=== PATIENT | female | born 1985 | race Hispanic/Latino ===

== ENCOUNTER 2021-02-11 05:53 | Inpatient (IN) | payer OTHER ==
[2021-02-11 06:28] VITALS: BMI 23.8
[2021-02-11] MEDS ORDERED: Misoprostol 200 MCG TAB PR PRN (06:35)
[2021-02-11] MEDS ORDERED: Lidocaine 1% (PF) 30 ML VIAL SC PRN ×2 (06:35→06:45)
[2021-02-11] MEDS ORDERED: Acetaminophen/Codeine 30-300mg Tablet PO PRN (06:35)
[2021-02-11] MEDS ORDERED: Ibuprofen 800 MG TAB PO PRN (06:35)
[2021-02-11] MEDS ORDERED: Lactated Ringer's 1,000 ML IV SCH (06:45)
[2021-02-11] MEDS ORDERED: Promethazine HCl 25 MG/ML VIAL IM PRN ×2 (06:45→09:34)
[2021-02-11] MEDS ORDERED: Diphenoxylate HCl/Atropine Tablet PO PRN ×2 (06:45)
[2021-02-11] MEDS ORDERED: Ondansetron PF 4 MG/2 ML Vial IVP PRN ×2 (06:45→09:34)
[2021-02-11] MEDS ORDERED: hydrALAZINE 20 MG/ML VIAL SLOW IVP PRN ×2 (06:45→11:24)
[2021-02-11] MEDS ORDERED: Acetaminophen 500 MG TAB PO PRN (06:45)
[2021-02-11] MEDS ORDERED: NS w/ Oxytocin 30 units 500 ML IV SCH ×3 (06:45)
[2021-02-11] MEDS ORDERED: Methylergonovine 0.2 MG/ML VIAL IM PRN (06:45)
[2021-02-11] MEDS ORDERED: NS w/ Oxytocin 30 units 500 ML IVPB SCH ×2 (06:45)
[2021-02-11] MEDS ORDERED: Butorphanol Tartrate 1 MG/ML VIAL SLOW IVP PRN (06:45)
[2021-02-11] MEDS ORDERED: Carboprost 250 MCG/ML AMP IM PRN (06:45)
[2021-02-11] MEDS ORDERED: Misoprostol 200 MCG TAB RC PRN (06:45)
[2021-02-11 07:15] LABS: Hemoglobin 12.8 g/dL (12.0-15.5); Mean Corpuscular HGB CONC 35.1 g/dL (32.0-36.0); Mean Corpuscular Hemoglobin 32.5 pg (27.0-33.0); Mean Corpuscular Volume 92.6 fl (81.6-98.3); Mean Platelet Volume 10.5 fl (7.4-10.4); Platelet Count 193 10x3/uL (150-450); RBC Distribution Width 12.5 % (11.5-14.5); Red Blood Cell (RBC) Count 3.94 10x6/uL (3.90-5.03); White Blood Cell (WBC) Count 9.4 10x3/uL (3.5-10.5)
[2021-02-11 07:48] LABS: Hep B Surf Ag Non-Reactive S/CO (NonReactive)
[2021-02-11 07:49] LABS: Syphilis Antibody Nonreactive (Nonreactive); Syphilis Antibody Index 0.02 S/CO (<1.00 Non-Reactive)
[2021-02-11 08:04] LABS: HBSAg Index 0.17 S/CO (0-0.99)
[2021-02-11] MEDS ORDERED: Fentanyl 2 mcg/Bup 0.1% Cadd 100 ML ONE (08:57)
[2021-02-11] MEDS ORDERED: ePHEDrine Sulfate 50 MG/10 ML VIAL SLOW IVP PRN (09:34)
[2021-02-11] MEDS ORDERED: Acetaminophen 325 MG TAB PO PRN (09:34)
[2021-02-11] MEDS ORDERED: Hydrocerin (Eucerin) Cream 120 gm Jar TOP PRN (09:34)
[2021-02-11] MEDS ORDERED: diphenhydrAMINE 50 MG/ML VIAL IVP PRN (09:34)
[2021-02-11] MEDS ORDERED: Naloxone HCl 0.4 mg/ml Vial IVP PRN ×2 (09:34)
[2021-02-11] MEDS ORDERED: Lactated Ringer's 500 ML IV PRN (09:34)
[2021-02-11] MEDS ORDERED: Communication Order-Pharmacy FS PRN (09:45)
[2021-02-11] MEDS ORDERED: Fentanyl 2 mcg/Bupivacaine 0.1% Cassette 100 ML EPIDURAL SCH (09:45)
[2021-02-11] MEDS ORDERED: Bisacodyl 10 MG SUPP PR PRN (11:24)
[2021-02-11] MEDS ORDERED: Boostrix 0.5 ML (Tdap) VIAL IM ONE (11:24)
[2021-02-11] MEDS ORDERED: Milk Of Magnesia 30 ML UDCUP PO PRN (11:24)
[2021-02-11] MEDS: Lactated Ringer's 1,000 ML IV SCH ×2 (14:26→14:27)
[2021-02-11] MEDS: Ferrous Sulfate 325 MG TAB PO SCH (16:07)
[2021-02-11] MEDS: Docusate Calcium (SURFAK) 240 MG CAP PO SCH (20:49)
[2021-02-12 04:22] LABS: Hemoglobin 10.7 g/dL (12.0-15.5); Mean Corpuscular HGB CONC 35.1 g/dL (32.0-36.0); Mean Corpuscular Hemoglobin 32.7 pg (27.0-33.0); Mean Corpuscular Volume 93.3 fl (81.6-98.3); Mean Platelet Volume 10.4 fl (7.4-10.4); Platelet Count 157 10x3/uL (150-450); RBC Distribution Width 12.4 % (11.5-14.5); Red Blood Cell (RBC) Count 3.27 10x6/uL (3.90-5.03); White Blood Cell (WBC) Count 13.2 10x3/uL (3.5-10.5)
[2021-02-12] MEDS: Docusate Calcium (SURFAK) 240 MG CAP PO SCH (08:11)
[2021-02-12] MEDS: Ferrous Sulfate 325 MG TAB PO SCH (08:21)
[2021-02-12] MEDS: Lactated Ringer's 1,000 ML IV SCH (08:21)
[2021-02-12 11:54] VITALS: BP 101/51; TEMP 98.2
== END 2021-02-12 15:05 | disposition home or self-care (01) | DRG 807 ==
LOC: CSHLD 05:53 → CSHPED 14:21
PROVIDERS: ADMIT Obstetrics & Gynecology; ATTEND Obstetrics & Gynecology
PROC: 10E0XZZ Delivery of Products of Conception, External Approach (ICD-10-PCS; principal; 2021-02-11)
PROC: 0KQM0ZZ Repair Perineum Muscle, Open Approach (ICD-10-PCS; 2021-02-11)
PROC: 10907ZC Drainage of Amniotic Fluid, Therapeutic from Products of Conception, Via Natural or Artificial Opening (ICD-10-PCS; 2021-02-11)
DX: O70.1 Second degree perineal laceration during delivery (principal); Z37.0 Single live birth; Z3A.39 39 weeks gestation of pregnancy; Z20.822 Contact with and (suspected) exposure to COVID-19
CPT/HCPCS: 36415; 51702; 85027; 86780; 86850; 86900; 86901; 87340; J2590; J7120